=== PATIENT | female | born 1960 | race Two or more races ===

== ENCOUNTER 2018-03-06 20:51 | Emergency (ER) | payer OTHER ==
[2018-03-06 21:00] VITALS: BP 153/74
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
[2018-03-06] MEDS ORDERED: KETOROLAC 30 MG/1 ML SDV IM ONE (21:14)
== END 2018-03-06 21:27 | disposition home or self-care (01) ==
DX: S16.1XXA Strain of muscle, fascia and tendon at neck level, initial encounter (principal); M54.5 Low back pain; V49.09XA Driver injured in collision with other motor vehicles in nontraffic accident, initial encounter; Y92.410 Unspecified street and highway as the place of occurrence of the external cause; Y93.9 Activity, unspecified
CPT/HCPCS: J1885